=== PATIENT | male | born 1985 | race Caucasian/White ===

== ENCOUNTER 2016-10-03 16:20 | Emergency (ER) | payer BC ==
[~2016-10-03] VITALS: Ht 175.3 cm; Wt 102.4 kg
[2016-10-03 16:22] VITALS: TEMP 36.8; Ht 175.3 cm; Wt 102.4 kg
[2016-10-03] MEDS ORDERED: BUTALBITAL/ACETAMIN/CAFFEINE TAB PO STA ×2 (16:42→17:48)
[2016-10-03] MEDS ORDERED: FRCT/ PO (16:49)
--- NOTE | 2016-10-03 16:50 | EMERGENCY ROOM VISIT NOTE ---
History Report prepared by Rashi: Jay Lewis Under the Supervision of: Dr. Dante Cedillo M.D. First contact with patient: 16:27 Chief Complaint: HEADACHE Stated Complaint: HEADACHE, QUARTER-SIZED LUMP ON BACK OF HEAD History of Present Illness The patient is a 30 year old male who presents to the Emergency Room with complaints of intermittent headaches beginning a couple of days ago. He currently rates his discomfort a 10/10 in severity. The patient states that he was seen at [facility] and was referred to the ER because they did not have equipment to test him. He reports that he had a subjective fever, nauseous, and chills. He denies having a sorethroat. The patient notes that he has seasonal allergies and has been feeling 'sinus sick' for 2-3 days. He states that about a week ago, he had a headache and felt a lump on the back of his head. The patient reports that he has a history of headaches and gets them frequently. He notes that he may get them as frequently as once a week. The patient states that when he gets headaches he can feel the back of his head 'pulse' and sometimes they are too severe to the point where he vomits. He reports that he tried ibuprofen, aspirin, and acetaminophen, but they do not help his discomfort. The patient notes that he injured his neck before and had to get it straightened by a chiropractor. Source of History: patient Onset: a couple of days ago Position: other (global) Symptom Intensity: 10/10 Quality: other (headache) Timing: intermittent Associated Symptoms: + chills, + fevers, + nausea, No sorethroat Review of Systems All systems have been listed, reviewed, and are negative other than those previously mentioned. Please see Additional Medical History Sheet. Family History No pertinent family history stated. Social History Smoking Status: Never Smoker Marital Status: Housing Status: lives with significant other Occupation Status: employed Current/Historical Medications Scheduled PRN Acetamin/Butalbital/Caffeine (Fioricet), 1-2 TAB PO Q4 PRN for headache Allergies Coded Allergies: No Known Allergies (Verified , 10/03/16) Physical Exam Vital Signs Date Time Temp Pulse Resp B/P Pulse Ox O2 Delivery O2 Flow Rate FiO2 10/03/16 17:55 82 20 138/91 97 10/03/16 16:22 36.8 82 18 130/88 96 Room Air Physical Exam GENERAL: Patient awake, alert, oriented x 3. Patient follows commands. Patient does not appear toxic. Patient is adequately hydrated and well- nourished. SKIN: No erythema, pallor, cyanosis or rash HEENT: Normal head, pupils equal, reactive to light and accommodation. Ears normal. Oral cavity and posterior pharynx appear normal. Neck: No neck vein distention, small protuberance just below the occipital midline: minimal tenderness, no erythema, no edema LUNGS: Clear to auscultation. No wheezes, no rales, no rhonchi. HEART: No murmurs. No gallops. No rubs ABDOMEN: No masses, no rebound, no hepatomegaly or splenomegaly. EXTREMITIES: No signs of trauma. No pedal or pretibial edema. No calf or thigh tenderness. NEUROLOGIC: Cranial nerves II-XII within normal limits. No gross motor sensory function deficits. Medical Decision & Procedures Medications Administered Medications (Trade) Dose Ordered Sig/Sonam Route Start Time Stop Time Status Last Admin Dose Admin Acetaminophen/ Butalbital/ Caffeine (Fioricet Tab) 2 tab NOW STAT PO 10/03/16 16:42 10/03/16 16:44 DC 10/03/16 16:51 2 TAB ED Course 1630: Past medical records reviewed. The patient was evaluated in room C07. A complete history and physical examination was performed. I discussed the treatment plan with the patient. He verbalized complete understanding of the plan. The patient was discharged home when he receives his medication. 164: Ordered Fioricet Tab 2 tab PO 1651: PDMP search did not show results. 174: Ordered Fioricet Tab 2 tab PO Medical Decision I considered multiple diagnoses considering: tension migraine, sinus cluster headache, encephalitis, meningitis. Medication Reconciliation: I attest that I have personally reviewed the patient' s current medication list. Blood Pressure Screening: Patient was found to have an elevated blood pressure and was referred to their primary doctor for recheck and further treatment. The patient has a small nodule at the base of his occiput. It is not fluctuant nor is it significantly tender. I do not believe it's infected. I also do not believe this has anything to do with his headache. He does not have cervical adenopathy. The patient does not have meningeal findings. The patient appears to have a tension headache which she's had multiple times in the past. The patient was given Fioricet here. He will continue that medication at home as needed. The patient is to follow-up with his family physician. Impression Primary Impression: Tension headache Scribe Attestation The scribe's documentation has been prepared under my direction and personally reviewed by me in its entirety. I confirm that the note above accurately reflects all work, treatment, procedures, and medical decision making performed by me. Departure Information Dispostion Home / Self-Care Prescriptions Acetamin/Butalbital/Caffeine (FIORICET) 1 Ea Tab 1-2 TAB PO Q4 Y for headache, #20 TAB Prov: Dante Cedillo M.D. 10/03/16 Referrals Vu Mo MD (PCP) Patient Instructions My [facility] Additional Instructions 1-2 Fioricet every 4-6 hours as needed for headache. Do not drive or operate machinery while taking Fioricet.
[2016-10-03] MEDS ORDERED: EMPTY 8 DRAM VIAL ONE (17:53)
[2016-10-03 17:55] VITALS: BP 138/91; PULSE 82; O2SAT 97
== END 2016-10-03 17:57 | disposition home or self-care (01) ==
LOC: C.EDB 16:21 → C.EDC 17:57
DX: G44.209 Tension-type headache, unspecified, not intractable (principal); R50.9 Fever, unspecified; R11.0 Nausea